=== PATIENT | male | born 1990 | race Caucasian/White ===

== ENCOUNTER 2021-02-18 16:59 | Observation (INO) | payer SELFPAY ==
[~2021-02-18] VITALS: Ht 180.3 cm; Wt 81.6 kg
[2021-02-18 17:43] LABS: BASOPHILS # (AUTO) 0.1 (0.0-0.1); BASOPHILS % 0.9 % (0.0-1.0); EOSINOPHILS # (AUTO) 0.7 (0.0-0.4); EOSINOPHILS % 8.7 % (0.0-6.0); HEMOGLOBIN 7.7 g/dL (14.0-18.0); LYMPHOCYTES # (AUTO) 1.5 (1.0-3.2); LYMPHOCYTES % 19.2 % (18.0-39.1); MEAN CORPUSCULAR HEMOGLOBIN 28.3 pg (28-32); MEAN CORPUSCULAR HGB CONC 29.6 g/dL (31-35); MEAN CORPUSCULAR VOLUME 95.6 fL (81-99); MONOCYTES # (AUTO) 0.5 (0.2-0.8); MONOCYTES % 6.3 % (4.4-11.3); NEUTROPHILS # (AUTO) 5.1 (2.1-6.9); NEUTROPHILS % 64.6 % (38.7-80.0); PLATELET COUNT 178 x10e3/uL (140-360); RED BLOOD COUNT 2.72 x10e6/uL (4.3-5.7)
[2021-02-18 17:57] LABS: ALBUMIN 3.3 g/dL (3.5-5.0); ALBUMIN/GLOBULIN RATIO 0.8 (0.8-2.0); ANION GAP 22.2 mmol/L (8-16); CALCIUM 8.5 mg/dL (8.4-10.2); CREATININE, SERUM 9.16 mg/dL (0.72-1.25)
[2021-02-18 17:59] LABS: POTASSIUM 5.2 mmol/L (3.5-5.1)
[2021-02-18] MEDS ORDERED: HYDRALAZINE HCL 20 MG/ML VIAL IV STA (18:17)
[2021-02-18] MEDS ORDERED: DEXTROSE 50% SYRINGE 50 ML IV STA (18:24)
[2021-02-18] MEDS ORDERED: INSULIN REGULAR, HUMAN 100 UNIT/1 ML IV STA (18:24)
[2021-02-18] MEDS ORDERED: TRIMETHOPRIM/SULFAMETHOXAZOLE 160-800 MG TAB PO ONE (18:30)
[2021-02-18] MEDS ORDERED: LIDOCAINE 1% 5ML-MPF INJ ONE (18:45)
[2021-02-18] MEDS ORDERED: LIDOCAINE HCL 2% LOCAL 20 ML VIAL ONE (18:54)
[2021-02-18] MEDS ORDERED: ONDANSETRON HCL INJ 2MG/ML 2ML 2 MG/ML VIAL IV STA (18:58)
[2021-02-18] MEDS ORDERED: Morphine 4mg Syringe 4 MG/ML INJ IV ONE (19:00)
[2021-02-18] MEDS ORDERED: ONDANSETRON HCL INJ 2MG/ML 2ML 2 MG/ML VIAL ONE (19:02)
[2021-02-18] MEDS ORDERED: Morphine 4mg Syringe 4 MG/ML INJ ONE (19:02)
[2021-02-18] MEDS: CLINDAMYCIN 600MG / 50ML 50 ML IV SCH ×2 (19:51→23:23)
[2021-02-18 20:20] VITALS: BP 155/100
[2021-02-18] MEDS ORDERED: CEFEPIME 1 GM in SODIUM CHLORIDE 0.9% 50ML 50 ML IV STA (22:35)
[2021-02-18] MEDS ORDERED: CEFEPIME 1 GM in SODIUM CHLORIDE 0.9% 50ML 50 ML IV SCH (22:45)
[2021-02-18] MEDS ORDERED: SODIUM CHLORIDE 0.9% 250ML 250 ML ONE (23:31)
[2021-02-19] VITALS (8 sets, daily range): BP systolic 134–149; BP diastolic 87–101
[2021-02-19] MEDS: ONDANSETRON HCL INJ 2MG/ML 2ML 2 MG/ML VIAL IV PRN ×2 (01:08→05:00)
[2021-02-19] MEDS: Morphine 4mg Syringe 4 MG/ML INJ IV PRN ×6 (01:08→22:21)
[2021-02-19 01:09] LABS: BASOPHILS % 0.7 % (0.0-1.0); EOSINOPHILS # (AUTO) 0.5 (0.0-0.4); EOSINOPHILS % 8.2 % (0.0-6.0); HEMATOCRIT 21.9 % (38.2-49.6); LYMPHOCYTES # (AUTO) 1.4 (1.0-3.2); LYMPHOCYTES % 23.2 % (18.0-39.1); MEAN CORPUSCULAR HEMOGLOBIN 28.3 pg (28-32); MEAN CORPUSCULAR HGB CONC 29.7 g/dL (31-35); MEAN CORPUSCULAR VOLUME 95.2 fL (81-99); MONOCYTES # (AUTO) 0.5 (0.2-0.8); NEUTROPHILS # (AUTO) 3.7 (2.1-6.9); NEUTROPHILS % 59.7 % (38.7-80.0); PLATELET COUNT 163 x10e3/uL (140-360); RED CELL DISTRIBUTION WIDTH 16.2 % (11.7-14.4)
[2021-02-19 01:12] LABS: HEMOGLOBIN 6.5 g/dL (14.0-18.0)
[2021-02-19 01:24] LABS: ALBUMIN 2.8 g/dL (3.5-5.0); ALBUMIN/GLOBULIN RATIO 0.8 (0.8-2.0); ANION GAP 22.7 mmol/L (8-16); CALCIUM 7.9 mg/dL (8.4-10.2); CREATININE, SERUM 9.02 mg/dL (0.72-1.25); POTASSIUM 4.7 mmol/L (3.5-5.1)
[2021-02-19 01:32] LABS: CREATINE KINASE MB 4.8 ng/mL (0-5.0)
[2021-02-19] MEDS ORDERED: FUROSEMIDE INJ 10 MG/ML 2 ML VIAL IV PRN (02:45)
[2021-02-19] MEDS ORDERED: SODIUM CHLORIDE 0.9% 250ML 250 ML IV ONE (02:45)
[2021-02-19 05:26] LABS: ALBUMIN 2.8 g/dL (3.5-5.0); ALBUMIN/GLOBULIN RATIO 0.8 (0.8-2.0); ANION GAP 18.9 mmol/L (8-16); CREATININE, SERUM 9.23 mg/dL (0.72-1.25); POTASSIUM 4.9 mmol/L (3.5-5.1)
[2021-02-19 06:01] LABS: CREATINE KINASE MB 2.4 ng/mL (0-5.0)
[2021-02-19] MEDS: CLINDAMYCIN 600MG / 50ML 50 ML IV SCH ×3 (08:43→17:47)
[2021-02-19 09:58] LABS: BASOPHILS % 0.8 % (0.0-1.0); EOSINOPHILS # (AUTO) 0.4 (0.0-0.4); EOSINOPHILS % 8.3 % (0.0-6.0); HEMATOCRIT 22.3 % (38.2-49.6); LYMPHOCYTES # (AUTO) 1.5 (1.0-3.2); LYMPHOCYTES % 29.5 % (18.0-39.1); MEAN CORPUSCULAR HGB CONC 31.4 g/dL (31-35); MEAN CORPUSCULAR VOLUME 92.5 fL (81-99); MONOCYTES # (AUTO) 0.5 (0.2-0.8); MONOCYTES % 9.5 % (4.4-11.3); NEUTROPHILS # (AUTO) 2.7 (2.1-6.9); NEUTROPHILS % 51.7 % (38.7-80.0); PLATELET COUNT 124 x10e3/uL (140-360); RED BLOOD COUNT 2.41 x10e6/uL (4.3-5.7); RED CELL DISTRIBUTION WIDTH 15.9 % (11.7-14.4)
[2021-02-19] MEDS ORDERED: SODIUM CHLORIDE 0.9% 1000ML 1,000 ML ONE (12:53)
[2021-02-19] MEDS ORDERED: SODIUM CHLORIDE 0.9% 1000ML 2,000 ML IV PRN (17:45)
[2021-02-19] MEDS ORDERED: HEPARIN SOD (PORCINE) 1000 UNIT/ML SDV IV PRN (17:45)
[2021-02-19] MEDS: MUPIROCIN 2% OINT 22 GM TUBE TOP SCH (17:56)
[2021-02-19] MEDS ORDERED: HEPARIN SOD (PORCINE) 1000 UNIT/ML SDV IV ONE (18:00)
[2021-02-20] VITALS: BP 139/91
[2021-02-20] MEDS: Morphine 4mg Syringe 4 MG/ML INJ IV PRN ×3 (02:30→11:15)
[2021-02-20 04:00] VITALS: BP 141/100
[2021-02-20] MEDS: CLINDAMYCIN 600MG / 50ML 50 ML IV SCH ×3 (06:00→12:00)
[2021-02-20 06:09] LABS: MEAN CORPUSCULAR HEMOGLOBIN 28.1 pg (28-32); MEAN CORPUSCULAR HGB CONC 29.3 g/dL (31-35); MEAN CORPUSCULAR VOLUME 95.7 fL (81-99); PLATELET COUNT 142 x10e3/uL (140-360); RED BLOOD COUNT 2.35 x10e6/uL (4.3-5.7); RED CELL DISTRIBUTION WIDTH 15.8 % (11.7-14.4)
[2021-02-20 06:16] LABS: HEMOGLOBIN 6.7 g/dL (14.0-18.0)
[2021-02-20 06:38] LABS: ANION GAP 17.8 mmol/L (8-16); CREATININE, SERUM 6.11 mg/dL (0.72-1.25); POTASSIUM 4.8 mmol/L (3.5-5.1)
[2021-02-20 07:46] VITALS: BP 149/98
[2021-02-20 08:00] VITALS: BP 149/98
[2021-02-20] MEDS ORDERED: SODIUM CHLORIDE 0.9% 250ML 250 ML IV ONE (08:00)
[2021-02-20] MEDS ORDERED: LIDOCAINE HCL 1% 30ML-PF VIAL INJ ONE (09:00)
[2021-02-20] MEDS: MUPIROCIN 2% OINT 22 GM TUBE TOP SCH (09:00)
[2021-02-20 11:25] VITALS: BP 164/109
[2021-02-20] MEDS ORDERED: ACETAMINOPHEN 325 MG TAB PO PRN (11:30)
[2021-02-20 12:02] LABS: EOSINOPHILS % (MANUAL) 6 % (0-7); LYMPHOCYTES % (MANUAL) 33 % (19-48); MONOCYTES % (MANUAL) 2 % (3.4-9.0); NEUTROPHILS % (MANUAL) 58 % (40-74); PLATELET ESTIMATE SLIGHTLY DECREASED
[2021-02-20 12:03] LABS: PLATELET MORPHOLOGY COMMENT NORMAL; RBC MORPHOLOGY COMMENT NORMAL
[2021-02-20] MEDS ORDERED: ONDANSETRON HCL 4 MG ORAL DISINTEGRATING TAB PO PRN (12:15)
[2021-02-20 13:41] LABS: HEMATOCRIT 27.6 % (38.2-49.6); HEMOGLOBIN 8.5 g/dL (14.0-18.0)
[2021-02-20 15:50] VITALS: BP 153/100
[2021-02-20] MEDS ORDERED: CLEOCIN HCL150 MG PO (15:54)
== END 2021-02-20 16:15 | disposition home or self-care (01) ==
LOC: ER 17:03 → ERHOLD 19:15 → MED/SURG2 19:44
PROVIDERS: ADMIT Internal Medicine; ATTEND Internal Medicine
DX: E11.69 Type 2 diabetes mellitus with other specified complication (principal); M86.8X7 Other osteomyelitis, ankle and foot; Z79.899 Other long term (current) drug therapy; E11.22 Type 2 diabetes mellitus with diabetic chronic kidney disease; I12.0 Hypertensive chronic kidney disease with stage 5 chronic kidney disease or end stage renal disease; N18.6 End stage renal disease; Z99.2 Dependence on renal dialysis; D63.1 Anemia in chronic kidney disease; Z20.822 Contact with and (suspected) exposure to COVID-19; E87.5 Hyperkalemia; M84.474A Pathological fracture, right foot, initial encounter for fracture; L03.115 Cellulitis of right lower limb; M20.5X1 Other deformities of toe(s) (acquired), right foot; Z89.512 Acquired absence of left leg below knee; Z91.51 Personal history of suicidal behavior; Z59.00 Homelessness unspecified; Z53.29 Procedure and treatment not carried out because of patient's decision for other reasons; F20.9 Schizophrenia, unspecified; F32.A Depression, unspecified
CPT/HCPCS: 36415 ×3; 73630 ×2; 80048; 80053 ×2; 82140; 82550 ×2; 82553 ×2; 82948; 83880; 84484 ×2; 85007; 85014; 85018; 85025 ×2; 85027; 86850; 86900; 86920; 90970; 93005; 94799 ×2; 99251; 99284; G0378 ×3; J0360; J1644; J1817; J1940; J2001 ×2; J2270 ×3; J2405 ×2; J7030 ×2; J7050 ×2; J7799; P9016 ×2; U0002

== ENCOUNTER 2021-02-21 18:14 | Observation (INO) | payer SELFPAY ==
[~2021-02-21] VITALS: Ht 180.3 cm; Wt 81.6 kg
[~2021-02-21 18:14] MED LIST: CLEOCIN HCL150 MG PO
[2021-02-21 18:58] LABS: BASOPHILS # (AUTO) 0.1 (0.0-0.1); BASOPHILS % 0.9 % (0.0-1.0); EOSINOPHILS # (AUTO) 0.3 (0.0-0.4); EOSINOPHILS % 5.1 % (0.0-6.0); HEMATOCRIT 30.7 % (38.2-49.6); HEMOGLOBIN 9.5 g/dL (14.0-18.0); LYMPHOCYTES # (AUTO) 1.1 (1.0-3.2); LYMPHOCYTES % 19.8 % (18.0-39.1); MEAN CORPUSCULAR HEMOGLOBIN 28.8 pg (28-32); MEAN CORPUSCULAR HGB CONC 30.9 g/dL (31-35); MONOCYTES # (AUTO) 0.5 (0.2-0.8); MONOCYTES % 8.8 % (4.4-11.3); NEUTROPHILS # (AUTO) 3.7 (2.1-6.9); NEUTROPHILS % 65.2 % (38.7-80.0); PLATELET COUNT 126 x10e3/uL (140-360); RED CELL DISTRIBUTION WIDTH 16.2 % (11.7-14.4)
[2021-02-21 19:15] LABS: ALBUMIN 3.4 g/dL (3.5-5.0); ALBUMIN/GLOBULIN RATIO 0.8 (0.8-2.0); ANION GAP 18.5 mmol/L (8-16); CREATININE, SERUM 6.12 mg/dL (0.72-1.25); POTASSIUM 4.5 mmol/L (3.5-5.1)
[2021-02-21 19:22] LABS: CREATINE KINASE MB 1.9 ng/mL (0-5.0)
[2021-02-21] MEDS ORDERED: ONDANSETRON HCL INJ 2MG/ML 2ML 2 MG/ML VIAL IV PRN (20:30)
[2021-02-21] MEDS: CLINDAMYCIN 600MG / 50ML 50 ML IV SCH ×2 (21:27→22:00)
[2021-02-21] MEDS: HYDROCODONE/APAP 10MG-325MG TAB PO PRN (21:27)
[2021-02-21 22:30] VITALS: BP_SYST 169; BP_DIAS 111; BP_DIAS 116
[2021-02-22] VITALS: BP 150/106
[2021-02-22] MEDS: HYDROCODONE/APAP 10MG-325MG TAB PO PRN ×4 (02:20→16:04)
[2021-02-22 04:00] VITALS: BP 146/118
[2021-02-22 06:06] LABS: BASOPHILS # (AUTO) 0.1 (0.0-0.1); BASOPHILS % 1.2 % (0.0-1.0); EOSINOPHILS # (AUTO) 0.3 (0.0-0.4); EOSINOPHILS % 6.9 % (0.0-6.0); HEMATOCRIT 26.8 % (38.2-49.6); HEMOGLOBIN 8.3 g/dL (14.0-18.0); LYMPHOCYTES # (AUTO) 1.4 (1.0-3.2); LYMPHOCYTES % 29.1 % (18.0-39.1); MEAN CORPUSCULAR HEMOGLOBIN 28.3 pg (28-32); MEAN CORPUSCULAR VOLUME 91.5 fL (81-99); MONOCYTES # (AUTO) 0.5 (0.2-0.8); MONOCYTES % 9.3 % (4.4-11.3); NEUTROPHILS # (AUTO) 2.6 (2.1-6.9); NEUTROPHILS % 53.3 % (38.7-80.0); PLATELET COUNT 114 x10e3/uL (140-360); RED BLOOD COUNT 2.93 x10e6/uL (4.3-5.7); RED CELL DISTRIBUTION WIDTH 15.8 % (11.7-14.4)
[2021-02-22 07:07] LABS: ALBUMIN 2.8 g/dL (3.5-5.0); ALBUMIN/GLOBULIN RATIO 0.7 (0.8-2.0); ANION GAP 17.7 mmol/L (8-16); CREATININE, SERUM 6.74 mg/dL (0.72-1.25); POTASSIUM 4.7 mmol/L (3.5-5.1)
[2021-02-22 08:03] VITALS: BP 163/118
[2021-02-22 09:00] VITALS: BP 163/118
[2021-02-22] MEDS: CLINDAMYCIN 600MG / 50ML 50 ML IV SCH ×2 (09:12→16:00)
[2021-02-22] MEDS ORDERED: SODIUM CHLORIDE 0.9% 1000ML 2,000 ML IV PRN (10:45)
[2021-02-22] MEDS ORDERED: HEPARIN SOD (PORCINE) 1000 UNIT/ML SDV IV PRN (10:45)
[2021-02-22] MEDS: HYDRALAZINE HCL 25 MG TAB PO SCH ×2 (11:28→16:00)
[2021-02-22 11:31] VITALS: BP 154/116
[2021-02-22] MEDS ORDERED: HYDRALAZINE HCL 20 MG/ML VIAL IV PRN (13:45)
[2021-02-22] MEDS ORDERED: DIPHENHYDRAMINE HCL 25 MG CAP PO ONE (13:45)
[2021-02-22] MEDS ORDERED: CATAPRES-TTS 21 EACH TOP (14:11)
[2021-02-22] MEDS ORDERED: HYDRALAZINE HCL25 MG PO (14:11)
[2021-02-22] MEDS ORDERED: CLINDAMYCIN HC300 MG PO (14:19)
[2021-02-22] MEDS ORDERED: CLONIDINE HCL 0.2 MG/24 HR 1 EA PATCH TOP ONE (14:30)
[2021-02-22 15:30] VITALS: BP 194/82
[2021-02-22] MEDS ORDERED: CLINDAMYCIN HCL 150 MG CAP PO SCH (15:30)
[2021-02-22] MEDS ORDERED: AMLODIPINE BESYLATE 5 MG TAB PO ONE (16:30)
[2021-02-22] MEDS ORDERED: NORVASC10 MG PO (16:46)
[2021-02-22] MEDS ORDERED: ONDANSETRON HCL 4 MG ORAL DISINTEGRATING TAB PO PRN (17:15)
[2021-02-23] MEDS ORDERED: AMLODIPINE BESYLATE 10 MG TAB PO SCH (09:00)
== END 2021-02-22 17:50 | disposition home or self-care (01) ==
LOC: ER 18:27 → ERHOLD 20:25 → MED/SURG3 22:00
PROVIDERS: ADMIT Internal Medicine; ATTEND Internal Medicine
DX: I12.0 Hypertensive chronic kidney disease with stage 5 chronic kidney disease or end stage renal disease (principal); N18.6 End stage renal disease; Z99.2 Dependence on renal dialysis; Z88.0 Allergy status to penicillin; F17.200 Nicotine dependence, unspecified, uncomplicated; E87.70 Fluid overload, unspecified; S92.912B Unspecified fracture of left toe(s), initial encounter for open fracture; T36.8X6A Underdosing of other systemic antibiotics, initial encounter; Z91.120 Patient's intentional underdosing of medication regimen due to financial hardship; Z59.00 Homelessness unspecified; E11.69 Type 2 diabetes mellitus with other specified complication; M86.671 Other chronic osteomyelitis, right ankle and foot; E11.22 Type 2 diabetes mellitus with diabetic chronic kidney disease; Z76.5 Malingerer [conscious simulation]; Z91.15 Patient's noncompliance with renal dialysis; Z20.822 Contact with and (suspected) exposure to COVID-19
CPT/HCPCS: 36415 ×2; 71045; 80053 ×2; 82550; 82553; 83880; 84484; 85025 ×2; 90935; 93005; 94799 ×2; 99251; 99284; G0378 ×2; J0360; J1644; U0002; 90962

== ENCOUNTER 2021-03-07 19:48 | Inpatient (IN) | payer SELFPAY ==
[~2021-03-07] VITALS: Ht 180.3 cm; Wt 81.6 kg
[~2021-03-07 19:48] MED LIST changes: +CATAPRES-TTS 21 EACH TOP; +CLINDAMYCIN HC300 MG PO; +HYDRALAZINE HCL25 MG PO; +NORVASC10 MG PO
[2021-03-07] MEDS ORDERED: LEVOFLOXACIN 750MG/D5W 150ML 150 ML IV ONE (21:00)
[2021-03-07] MEDS ORDERED: Clindamycin INJ 600 MG 600 MG in SODIUM CHLORIDE 0.9% 50ML 50 ML IV ONE (21:00)
[2021-03-07] MEDS ORDERED: HYDROCODONE/APAP 5MG-325MG TAB PO ONE (21:00)
[2021-03-07 21:10] LABS: BASOPHILS # (AUTO) 0.1 (0.0-0.1); BASOPHILS % 1.1 % (0.0-1.0); EOSINOPHILS # (AUTO) 0.4 (0.0-0.4); EOSINOPHILS % 8.6 % (0.0-6.0); HEMATOCRIT 22.1 % (38.2-49.6); MEAN CORPUSCULAR HEMOGLOBIN 28.3 pg (28-32); MEAN CORPUSCULAR HGB CONC 31.2 g/dL (31-35); MEAN CORPUSCULAR VOLUME 90.6 fL (81-99); MONOCYTES # (AUTO) 0.4 (0.2-0.8); NEUTROPHILS # (AUTO) 2.9 (2.1-6.9); NEUTROPHILS % 61.1 % (38.7-80.0); PLATELET COUNT 178 x10e3/uL (140-360); RED BLOOD COUNT 2.44 x10e6/uL (4.3-5.7); RED CELL DISTRIBUTION WIDTH 16.5 % (11.7-14.4)
[2021-03-07 21:22] LABS: HEMOGLOBIN 6.9 g/dL (14.0-18.0)
[2021-03-07] MEDS ORDERED: SODIUM CHLORIDE 0.9% 250ML 250 ML IV ONE (22:15)
[2021-03-07 22:17] LABS: ALBUMIN 3.1 g/dL (3.5-5.0); ALBUMIN/GLOBULIN RATIO 0.7 (0.8-2.0); ALKALINE PHOSPHATASE 128 IU/L (40-150); ANION GAP 19.7 mmol/L (8-16); BLOOD UREA NITROGEN 54 mg/dL (7-26); BUN/CREATININE RATIO 6 (6-25); CALCIUM 8.5 mg/dL (8.4-10.2); CARBON DIOXIDE 22 mmol/L (22-29); CHLORIDE 102 mmol/L (98-107); CREATININE, SERUM 8.91 mg/dL (0.72-1.25); EST GLOMERULAR FILTRATION RATE 7 ML/MIN (60-); GLUCOSE 81 mg/dL (74-118); POTASSIUM 4.7 mmol/L (3.5-5.1); SODIUM 139 mmol/L (136-145)
[2021-03-07 22:19] LABS: ALANINE AMINOTRANSFERASE < 6 IU/L (0-55)
[2021-03-07] MEDS ORDERED: SODIUM CHLORIDE 0.9% 50ML 50 ML ONE (22:52)
[2021-03-08] VITALS (7 sets, daily range): BP systolic 123–155; BP diastolic 79–104
[2021-03-08] MEDS: CARVEDILOL 12.5 MG TAB PO SCH ×3 (01:14→18:24)
[2021-03-08] MEDS: HYDROCODONE/APAP 5MG-325MG TAB PO PRN ×2 (08:33→21:53)
[2021-03-08] MEDS: HYDROMORPHONE 1MG/1ML INJ IV PRN ×3 (14:20→22:30)
[2021-03-08] MEDS ORDERED: ONDANSETRON HCL INJ 2MG/ML 2ML 2 MG/ML VIAL IV PRN (20:30)
[2021-03-08] MEDS ORDERED: HYDRALAZINE HCL 20 MG/ML VIAL IV PRN (20:30)
[2021-03-08] MEDS ORDERED: ACETAMINOPHEN 325 MG TAB PO PRN (20:30)
[2021-03-08] MEDS ORDERED: POLYETHYLENE GLYCOL 3350 17 GM PACK PO PRN (20:30)
[2021-03-09] VITALS (9 sets, daily range): BP systolic 125–149; BP diastolic 85–98
[2021-03-09] MEDS: HYDROMORPHONE 1MG/1ML INJ IV PRN ×6 (02:30→23:22)
[2021-03-09] MEDS: Clindamycin INJ 300 MG/50 ML 50 ML IV SCH ×4 (06:45→23:21)
[2021-03-09 06:49] LABS: BASOPHILS # (AUTO) 0.1 (0.0-0.1); BASOPHILS % 1.4 % (0.0-1.0); EOSINOPHILS # (AUTO) 0.4 (0.0-0.4); EOSINOPHILS % 7.4 % (0.0-6.0); HEMATOCRIT 23.7 % (38.2-49.6); HEMOGLOBIN 7.3 g/dL (14.0-18.0); LYMPHOCYTES # (AUTO) 1.7 (1.0-3.2); LYMPHOCYTES % 34.5 % (18.0-39.1); MEAN CORPUSCULAR HEMOGLOBIN 28.1 pg (28-32); MEAN CORPUSCULAR HGB CONC 30.8 g/dL (31-35); MEAN CORPUSCULAR VOLUME 91.2 fL (81-99); MONOCYTES # (AUTO) 0.6 (0.2-0.8); MONOCYTES % 11.2 % (4.4-11.3); NEUTROPHILS # (AUTO) 2.3 (2.1-6.9); NEUTROPHILS % 45.3 % (38.7-80.0); PLATELET COUNT 136 x10e3/uL (140-360); RED CELL DISTRIBUTION WIDTH 15.7 % (11.7-14.4)
[2021-03-09 07:05] LABS: ANION GAP 20.9 mmol/L (8-16); CALCIUM 8.4 mg/dL (8.4-10.2); CHOL/HDL RATIO 2.7 (3.9-4.7); CREATININE, SERUM 9.67 mg/dL (0.72-1.25)
[2021-03-09 07:18] LABS: POTASSIUM 5.9 mmol/L (3.5-5.1)
[2021-03-09 07:26] LABS: THYROID STIMULATING HORMONE 1.658 uIU/mL (0.350-4.940)
[2021-03-09] MEDS ORDERED: FAMOTIDINE 20 MG TAB PO SCH (07:30)
[2021-03-09] MEDS ORDERED: FAMOTIDINE 20 MG TAB PO ONE (07:30)
[2021-03-09] MEDS: OYST-CAL-D 500MG TABLET PO SCH ×2 (09:36→17:06)
[2021-03-09] MEDS: CARVEDILOL 12.5 MG TAB PO SCH ×2 (09:36→17:07)
[2021-03-09] MEDS: ZINC SULFATE 220 MG CAP PO SCH ×2 (09:36→17:06)
[2021-03-09] MEDS: DOCUSATE SODIUM 100 MG CAP PO SCH ×2 (09:36→17:06)
[2021-03-09] MEDS: FOLIC ACID/CYANOCOB/PYRIDOXINE TAB PO SCH (09:36)
[2021-03-09] MEDS ORDERED: SODIUM CHLORIDE 0.9% 1000ML 2,000 ML ONE (20:05)
[2021-03-10] MEDS: HYDROMORPHONE 1MG/1ML INJ IV PRN (04:01)
[2021-03-10 05:16] VITALS: BP 133/88
[2021-03-10] MEDS: Clindamycin INJ 300 MG/50 ML 50 ML IV SCH (06:15)
[2021-03-10] MEDS: DOCUSATE SODIUM 100 MG CAP PO SCH (08:16)
[2021-03-10] MEDS: CARVEDILOL 12.5 MG TAB PO SCH (08:17)
[2021-03-10] MEDS: FOLIC ACID/CYANOCOB/PYRIDOXINE TAB PO SCH (08:17)
[2021-03-10] MEDS: OYST-CAL-D 500MG TABLET PO SCH (08:17)
[2021-03-10] MEDS: ZINC SULFATE 220 MG CAP PO SCH (08:17)
[2021-03-10 08:28] VITALS: BP 140/98
[2021-03-10] MEDS: HYDROCODONE/APAP 5MG-325MG TAB PO PRN (08:57)
== END 2021-03-10 09:05 | disposition left against medical advice (07) | DRG 539 ==
LOC: ER 19:55 → ERHOLD 21:39 → MED/SURG2 23:14
PROVIDERS: ADMIT Internal Medicine; ATTEND Internal Medicine
PROC: 5A1D70Z Performance of Urinary Filtration, Intermittent, Less than 6 Hours Per Day (ICD-10-PCS; principal; 2021-03-09)
DX: M86.671 Other chronic osteomyelitis, right ankle and foot (principal); N18.6 End stage renal disease; I13.11 Hypertensive heart and chronic kidney disease without heart failure, with stage 5 chronic kidney disease, or end stage renal disease; E87.1 Hypo-osmolality and hyponatremia; E87.2 Acidosis; L97.518 Non-pressure chronic ulcer of other part of right foot with other specified severity; D64.9 Anemia, unspecified; Z99.2 Dependence on renal dialysis; E87.5 Hyperkalemia; Z87.820 Personal history of traumatic brain injury; Z59.00 Homelessness unspecified; Z76.5 Malingerer [conscious simulation]; Z89.512 Acquired absence of left leg below knee; Z89.421 Acquired absence of other right toe(s); Z91.19 Patient's noncompliance with other medical treatment and regimen; Z91.14 Patient's other noncompliance with medication regimen; F17.200 Nicotine dependence, unspecified, uncomplicated; Z20.822 Contact with and (suspected) exposure to COVID-19
CPT/HCPCS: 36415; 80048; 80053; 80061; 83036; 83605; 84443; 85025; 86705; 86706; 86850; 86900; 86920; 87040; 87340; 99284; J1170; J2405; J7030; J7050; P9016; U0002